=== PATIENT | female | born 1955 | race Caucasian/White ===

== ENCOUNTER 2018-07-15 17:25 | Inpatient (IN) ==
[2018-07-15] MEDS ORDERED: *HR* LORazepam 1 MG TABLET PO ONE (18:54)
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
--- NOTE | 2018-07-15 21:23 | Emergency Department Note ---
Disposition Clinical Impression: Lumbar radiculopathy, Cauda equina syndrome Disposition: Admitted As Inpatient Condition: Fair Referrals: Farzaneh Lorenzo MD [Primary Care Provider] - Forms: ED Satisfaction Letter Time of Disposition: 21:58 General Adult HPI - General Chief complaint: ED Back Pain/Injury Stated complaint: Back Pain/saddle anesthesia cant feel pee from vag Time Seen by Provider: 07/15/18 17:37 Source: patient, family Limitations: no limitations - History of Present Illness Pain Scale: 10 - Related Data Home Medications Medication Instructions Recorded Confirmed TraZODone 03/08/18 Previous Rx's Medication Instructions Recorded Sulfamethoxazole/Trimeth DS 1 each PO BID #14 tablet 03/08/18 [Bactrim DS] Lidocaine Patch [Lidoderm 5% patch] 1 each TP DAILY #10 adh..patch 07/14/18 Methocarbamol [Robaxin] 500 mg PO Q8HR #15 tablet 07/14/18 Allergies Allergy/AdvReac Type Severity Reaction Status Date / Time codeine Allergy Nausea Verified 07/14/18 18:42 Iodinated Contrast- Oral and Allergy Nausea Verified 07/14/18 18:42 IV Dye [Iodinated Contrast Media - IV Dye] Past Medical History - Past Medical History Medical history: Reports: GERD, hypertension Surgical history: Reports: appendectomy, cholecystectomy, hysterectomy Psychiatric history: Reports: no psych history NAPKIN BAND WRAPPER history: Reports: no NAPKIN BAND WRAPPER history - Social History Smoking Status: Never smoker Smokeless Tobacco Status: No Alcohol use: Reports: none Drug use: Reports: none Physical Exam - General Limitations: no limitations General appearance: alert, in no apparent distress Course Vital Signs Temperature 99.1 F 07/15/18 17:27 Pulse Rate 101 07/15/18 17:27 Respiratory Rate 16 07/15/18 17:27 Blood Pressure 130/67 07/15/18 17:27 O2 Sat by Pulse Oximetry 96 07/15/18 17:27 Temperature 99.1 F 07/15/18 17:27 Pulse Rate 98 07/15/18 19:24 Respiratory Rate 16 07/15/18 17:27 Blood Pressure 130/67 07/15/18 17:27 O2 Sat by Pulse Oximetry 96 07/15/18 19:24 Oxygen Delivery Oxygen Delivery Room Air Critical Care Time Critical Care Time: Yes Total Critical Care Time: 30 Attestation: The high probability of a clinically significant, sudden or life threatening deterioration of the [] system(s) required my full and direct attention, intervention and personal management. The aggregate critical care time was [] minutes. This time is in addition to time spent performing reported procedures but includes the following: [] Data Review and interpretation [] Patient assessment and monitoring of vital signs [] Documentation [] Medication orders and management Attestation Statement - Attestation Attestation: Care assumed from Dr. Cunha at 21:20 pending MRI L spine. Patient to ED with low back pain and radicular symptoms 21:55: MRI resulted. Tests discussed with patient. Call placed to DR. Vo - ortho/spine. MRI results discussed in detail. He recs admission to medicine service with his consultation to follow. He recs NPO and bladder scan
[2018-07-15 22:24] LABS: Basophils # 0.1 K/mcL (0.0-0.2); Basophils % 0.7 %; Eosinophils # 0.2 K/mcL (0.0-0.6); Eosinophils % 2.1 %; Hematocrit 36.6 % (35.3-44.9); Hemoglobin 11.9 g/dL (11.5-15.4); Immature Granulocytes % 0.5 % (0-4); Lymphocytes # 2.5 K/mcL (0.6-4.6); Mean Corpuscular HGB Conc 32.5 g/dL (31.6-35.5); Mean Corpuscular Hemoglobin 27.5 pg (28.0-33.3); Mean Corpuscular Volume 84.7 fL (83.0-100.0); Mean Platelet Volume 8.2 fL (9.4-12.4); Monocytes # 0.9 K/mcL (0.0-1.3); Monocytes % 10.5 %; Neutrophils # 4.5 K/mcL (1.6-8.9); Platelet Count 304 K/mcL (140-400); Red Blood Count 4.32 M/mcL (3.82-4.97); Red Cell Distribution Width 15.7 % (11.5-14.5); Segmented Neutrophils % 55.2 %
[2018-07-15 22:31] LABS: Prothrombin Time 10.9 Seconds (9.4-12.1)
[2018-07-15 22:43] LABS: Alanine Aminotransferase 21 Units/L (7-52); Albumin 3.8 g/dL (3.5-5.7); Albumin/Globulin Ratio 1.7 (1.1-2.2); Alkaline Phosphatase 56 Units/L (34-104); Aspartate Amino Transferase 21 Units/L (13-39); BUN/Creatinine Ratio 14 (6-26); Bilirubin,Total 0.3 mg/dL (0.3-1.0); Blood Urea Nitrogen 11 mg/dL (8-23); Calcium 9.2 mg/dL (8.6-10.3); Carbon Dioxide 25 mEq/L (23-29); Chloride 101 mEq/L (98-107); Globulin 2.2 g/dL (2.4-3.5); Glucose 117 mg/dL (70-105); Osmolality,Calculated 276 (280-300); Potassium 3.9 mEq/L (3.5-5.1); Sodium 133 mEq/L (136-145); eGFR For Non-African Americans > 60 (> 60)
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
[2018-07-16] MEDS ORDERED: Ondansetron 4 MG/2 ML VIAL IVP PRN (00:05)
[2018-07-16] MEDS ORDERED: OXYCODONE Oral CONC 10 MG/0.5 ML ORAL.SYG SL PRN (00:05)
[2018-07-16] MEDS ORDERED: Naloxone 0.4 MG/ML INJ IVP PRN ×3 (00:05→19:40)
[2018-07-16] MEDS: Ketorolac 15 MG/ML VIAL IVP PRN ×2 (00:44→07:55)
[2018-07-16] MEDS: methylPREDNISolone 125 MG/2 ML VIAL IVP SCH ×3 (02:26→13:42)
[2018-07-16 04:10] LABS: Basophils # 0.1 K/mcL (0.0-0.2); Basophils % 0.8 %; Eosinophils # 0.2 K/mcL (0.0-0.6); Eosinophils % 2.2 %; Hematocrit 36.6 % (35.3-44.9); Hemoglobin 11.9 g/dL (11.5-15.4); Immature Granulocytes % 0.6 % (0-4); Lymphocytes % 27.4 %; Mean Corpuscular HGB Conc 32.5 g/dL (31.6-35.5); Mean Corpuscular Hemoglobin 27.5 pg (28.0-33.3); Mean Corpuscular Volume 84.7 fL (83.0-100.0); Mean Platelet Volume 8.2 fL (9.4-12.4); Monocytes # 0.5 K/mcL (0.0-1.3); Monocytes % 7.2 %; Neutrophils # 4.4 K/mcL (1.6-8.9); Platelet Count 271 K/mcL (140-400); Red Blood Count 4.32 M/mcL (3.82-4.97); Red Cell Distribution Width 15.6 % (11.5-14.5); Segmented Neutrophils % 61.8 %
[2018-07-16 04:25] LABS: BUN/Creatinine Ratio 15 (6-26); Blood Urea Nitrogen 11 mg/dL (8-23); Carbon Dioxide 27 mEq/L (23-29); Chloride 103 mEq/L (98-107); Glucose 94 mg/dL (70-105); Osmolality,Calculated 281 (280-300); Potassium 3.8 mEq/L (3.5-5.1); Sodium 136 mEq/L (136-145); eGFR For Non-African Americans > 60 (> 60)
[2018-07-16] MEDS: Gabapentin 300 MG CAPSULE PO SCH ×2 (07:56→19:43)
[2018-07-16] MEDS ORDERED: traZODone 50 MG TABLET PO PRN (08:28)
[2018-07-16] MEDS ORDERED: BuPROPion XL (24 HR) 150 MG TABLET PO SCH (09:00)
--- NOTE | 2018-07-16 11:05 | Internal Med Progress Note ---
Hospitalist Progress Note - Encounter Date of Encounter: 07/16/18 Time of Encounter: 11:05 - Subjective Interval History: Seen and evaluated at the bedside No new complains, pain is moderately controlled - Exam Vitals: Temp Pulse Resp BP Pulse Ox 97.9 F 90 14 148/87 95 07/16/18 07:30 07/16/18 07:00 07/16/18 07:00 07/16/18 07:00 07/16/18 07:00 Exam: Gen.: Vitals noted. No acute distress. AAOx3, resting comfortably in bed. HEENT: PERRL/EOMI, oropharynx clear, Normocephalic, atraumatic, MMM Cardiac: RRR, no murmur, +S1/S2, No BLE edema Pulmonary: CTA bilaterally, no wheezes, rales or rhonchi, equal chest expansion, unlabored breathing Abdomen: soft, nontender, BS noted, no guarding, no palpable HSM Skin: warm and dry, no visible lesions. MSK: Bilateral lower extremity muscle strength 5/5 on right, 4/5 on left on proximal muscle groups. Limited due to pain. ROM intact, no joint swelling noted, gait no assessed while in bed. Non tender calf or clubbing Neuro: A&Ox3, moves all extremities,No gross focal deficits Psych: Appropriate mood and behavior, AOx3 - Assessment and Plan (1) Cauda equina syndrome Current Visit: Yes Status: Acute Assessment and Plan: Continue pain control Management by spine surgery. (2) DVT prophylaxis Current Visit: Yes Status: Acute Assessment and Plan: Subcutaneous heparin (3) GERD (gastroesophageal reflux disease) Current Visit: Yes Status: Chronic Assessment and Plan: Continue omeprazole (4) Hypertension Current Visit: Yes Status: Chronic Assessment and Plan: Uncontrolled, likely due to pain Continue home dose of Zestril Add amlodipine Hydralazine IV q6hrs when necessary SBP >160 - Time Spent with Patient Total time spent is greater than 50% in coordination of care (as documented) at patient's floor/unit and/or counseling patient: Plan of Care Discussed with: patient Internal Medicine: Result - Labs CBC & Chem 7: 07/16/18 03:38 07/16/18 03:38 Labs: Short CBC 07/15/18 07/16/18 Range/Units 22:11 03:38 WBC 8.2 7.2 (4.3-11.1) K/mcL Hgb 11.9 11.9 (11.5-15.4) g/dL Hct 36.6 36.6 (35.3-44.9) % Plt Count 304 271 (140-400) K/mcL Neutrophils # 4.5 4.4 (1.6-8.9) K/mcL BMP 07/15/18 07/16/18 22:11 03:38 Sodium 133 L 136 Potassium 3.9 3.8 Chloride 101 103 Carbon Dioxide 25 27 BUN 11 11 Creatinine 0.79 0.71 Glucose 117 H 94 Calcium 9.2 9.0 Liver Function 07/15/18 Range/Units 22:11 Total Bilirubin 0.3 (0.3-1.0) mg/dL AST 21 (13-39) Units/L ALT 21 (7-52) Units/L Alkaline Phosphatase 56 (34-104) Units/L Albumin 3.8 (3.5-5.7) g/dL - ABG Interpretation ABG results: PT/INR, D-dimer PT 10.9 Seconds (9.4-12.1) 07/15/18 22:11 - Impressions Impressions Lumbar Spine MRI 07/15/18 18:52 IMPRESSION: Multilevel degenerative thecal sac narrowing and neural foraminal stenosis. Canal stenosis is worst at L4-5 and results in impingement of the cauda equina. D/ / Salvador Jacques MD / Salvador Jacques MD Interpreting Provider: Salvador Jacques MD Consult Discharge Plan - Plan Referrals: Farzaneh Lorenzo MD [Primary Care Provider] - (3) GERD (gastroesophageal reflux disease) Qualifiers: Esophagitis presence: esophagitis presence not specified Qualified Code(s): K21.9 - Gastro-esophageal reflux disease without esophagitis (4) Hypertension Qualifiers: Hypertension type: essential hypertension Qualified Code(s): I10 - Essential (primary) hypertension
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
[2018-07-16] MEDS ORDERED: amLODIPine 5 MG TABLET PO SCH (12:45)
--- NOTE | 2018-07-16 14:33 | Anesthesia Evaluation PreOp ---
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: Denies Any Significant HX Other Medical History: GERD Anesthesia History: No Prior Anesthetic Complications, Past Anesthesia (hysterectomy) Alcohol Use: none Drug use: none Medications and Allergies Trazodone HCl 100 mg PO HS PRN 03/08/18 [History] Lidocaine Patch [Lidoderm 5% patch] 1 each TP DAILY #10 adh..patch 07/14/18 [Rx] Methocarbamol [Robaxin] 500 mg PO Q8HR #15 tablet 07/14/18 [Rx] Amitriptyline [Elavil] 50 mg PO DAILY 07/15/18 [History] Bupropion HCl [Wellbutrin Xl] 300 mg PO DAILY 07/15/18 [History] Diclofenac Sodium [Voltaren] 50 mg PO BID 07/15/18 [History] Gabapentin [Neurontin] 300 mg PO TID 07/15/18 [History] HYDROcodone/Acet 5/325 mg [[place] 5-325 mg] 1 tab PO Q4-6H PRN 07/15/18 [History] Lidocaine HCl [Aspercreme] 1 appl TP 5XD 07/15/18 [History] Lisinopril [Zestril] 5 mg PO DAILY 07/15/18 [History] Mirabegron [Myrbetriq] 25 mg PO DAILY 07/15/18 [History] Multivit with Calcium,Iron,Min [One Daily Women's] 1 tab PO DAILY 07/15/18 [History] Omeprazole [PriLOSEC] 40 mg PO DAILY 07/15/18 [History] Oxybutynin [Ditropan] 5 mg PO DAILY 07/15/18 [History] hydrOXYzine HCl [Hydroxyzine HCl] 12.5 - 25 mg PO Q4-6H PRN 07/15/18 [History] Allergy/AdvReac Type Severity Reaction Status Date / Time codeine Allergy See Verified 07/15/18 22:56 Comments Iodinated Contrast- Oral and Allergy See Verified 07/15/18 22:56 IV Dye Comments [Iodinated Contrast Media - IV Dye] - Meds/Allergy Pre-op Review Medications Reviewed: Yes Allergies Reviewed: Yes Beta Blockers on Current Med List: No Anesthesia Results - Labs 07/16/18 03:38 07/16/18 03:38 - Imaging EKG: report reviewed (07/25/2015 SINUS RHYTHM INTERPRETATION BASED ON A DEFAULT AGE OF 40 YEARS) Additional studies: 09/15/2016 Echo Impressions: LVEF 60%. Normal left ventricular size and systolic function. There is evidence of mild diastolic dysfunction of the left ventricle. Normal right ventricular size and function. Mild aortic regurgitation. No pulmonary hypertension. Anesthesia Exam Vital Signs/O2 Sat/Glucose, Most Recent Temp Pulse Resp BP Pulse Ox 97.6 F 111 17 145/84 100 07/16/18 11:30 07/16/18 14:25 07/16/18 14:25 07/16/18 14:25 07/16/18 14:25 Blood Glucose* 83 Height: 5'6''/1.68m Weight: 124 lbs/56.5 kg NPO (# of Hours): 8 Pain Scale: 8 (back) Pain Scale Used: Numeric (1 - 10) - HEENT Pupil (Motor): EOMI Mallampati: II Teeth: Edentulous Oral Opening: Greater than 3 - GALVANOMETER ASSEMBLER LOC: Oriented GALVANOMETER ASSEMBLER Motor: Normal RUE, Normal LUE, Normal RLE, Normal LLE, Normal Face GALVANOMETER ASSEMBLER Sensory: Normal: RUE, LUE, Face, Deficit: RLE, LLE - Cardiac Rhythm: Regular Murmur: None - Pulmonary Breath Sounds: bilateral Clear Respiratory Effort: Symmetrical Anesthesia Assess/Plan ASA Score: 3 Level of consciousness: Cooperative, Oriented, Tranquil Anesthetic Plan: General Monitoring Plan: Standard Monitors Recovery Plan: PACU
[2018-07-16] MEDS ORDERED: Bacitracin 50,000 UNIT, Polymyxin B Sulfate 500,000 UNIT, Sodium Chloride IRRigation 1,... IR ONE (14:40)
[2018-07-16] MEDS ORDERED: Methocarbamol 500 MG TABLET PO SCH (16:00)
[2018-07-16] MEDS ORDERED: *HR* Phenylephrine 10 MG/ML VIAL ONE (17:55)
[2018-07-16] MEDS ORDERED: *HR* Remifentanil 1 MG VIAL IVP ONE (17:55)
[2018-07-16] MEDS ORDERED: *HR* Succinylcholine 200 MG/10 ML VIAL IVP ONE (17:55)
[2018-07-16] MEDS ORDERED: *HR* Midazolam HCl 2 MG/2 ML VIAL ONE (17:55)
[2018-07-16] MEDS ORDERED: Lidocaine -MPF 2% 2 ML VIAL ONE (17:55)
[2018-07-16] MEDS ORDERED: *HR* Rocuronium Bromide 50 MG/5 ML VIAL ONE (17:55)
[2018-07-16] MEDS ORDERED: *HR* PHENYLEPHRINE 1,000 MCG/10 ML SYRINGE IVP ONE (17:55)
[2018-07-16] MEDS ORDERED: *HR* Propofol 200 MG/20 ML VIAL IVP ONE (17:55)
[2018-07-16] MEDS ORDERED: *HR* FentaNYL (PF) 100 MCG/2 ML VIAL ONE (17:55)
[2018-07-16] MEDS ORDERED: Ondansetron 4 MG/2 ML VIAL ONE (18:08)
[2018-07-16] MEDS ORDERED: Dexamethasone 4 MG/ML VIAL ONE (18:09)
--- NOTE | 2018-07-16 18:15 | Orthopedic Operative Note ---
Date of procedure: 07/16/18 Pre-op diagnosis: Cauda equina syndrome, spondylolisthesis, lumbar stenosis Post-op diagnosis: same Operation/Findings: Posterior lumbar interbody fusion L4-L5, laminectomy L3-4: The patient successfully underwent general endotracheal anesthesia. The patient was given antibiotics prior to the start of the procedure. Compression boots and stockings were used for deep vein thrombosis prophylaxis. A Martin catheter was placed. Leads for neuro monitoring were placed on the upper and lower extremities. This included the cranium. The neuro monitoring personnel confirmed there were satisfactory readings prior to the start of the procedure. The patient was turned prone on the Jamie table. The back was prepped and draped in the usual sterile fashion. An incision was was marked and centered over the involved L3-L5 levels in the mid line. The incision was deepened through the lumbar fascia. Bovie cautery and Gracia elevators were used to reflect the paraspinal musculature at the lateral extent of the L3-L5 transverse processes of the involved levels. Maddy clamps were placed over the L4 and L5 spinous processes. An intraoperative lateral fluorograph was obtained. A conversation was held between the surgeon and radiologist and both confirmed we had the correct operative levels. We then placed pedicle screws in standard fashion with the aid of fluoroscopy and anatomic landmarks. Briefly a starter awl was used. A gearshift was subsequently used to enter the helicopter pilot hole via a transpedicular route into the vertebral body. The helicopter pilot hole was tapped with an undersized instrument, and subsequently four 6.5 x 40 mm pedicle screws were placed bilaterally at the indicated L4 and L5 levels. The screws were tested with the aid of the neurologic monitoring staff via pedicle screw stimulation. All reading suggested there was no significant cortical wall breech. The screws were also evaluated fluoro- graphically and appeared to be in satisfactory position. We then turned our attention to the decompression portion of the pr ocedure. We removed the supraspinous and interspinous ligaments and subsequently the insertion of the ligamentum flavum on the undersurface of the proximal L4 lamina was dislodged with a curette. We then removed the ligamentum flavum as well as undercut the L4-L5 facets at this level to decompress the lateral recesses. We also performed a L4 laminectomy. The thecal sac was noted to be severely compressed and appeared dusky due to the severe compression. There was clearly significant stenosis as well proximally at the L3-4 level so we proceeded with the decompression at L3-4. This involved removing the ligamentum flavum and supraspinous ligaments, undercutting the L3-4 facets, doing partial medial facetectomies. And doing a partial L3 laminectomy. After the decompression,which was over and above that which was required to place the interbody graft, the foramen and traversing roots at the L3-4 and L4-5 levels were found to be free and patent. We then protected the neural elements including the thecal sac and traversing nerve root on the right at L4-L5 with a dural retractor. We made an annulotomy into the L4-L5 disc space and then removed entire disc material using Pituitary instruments. We trialed various size grafts after the endplates were prepared for graft insertion. A 10 x 26 enter body graft fit well within the L4-L5 disc space. We obtained some bone from the right posterior superior iliac spine through us a separate incision and combined with this with the bone which we had saved from the L3 and L4 laminectomy portion of the procedure. This autograft bone was first placed in the anterior portion of the L4-L5 disc space and additional bone was placed within the interbody graft spacer. We then placed the interbody graft spacer obliquely across the L4-L5 disc space towards the midline while protecting the neural elements with a root retractor. When the graft was found to be in satisfactory position the electronic system engineer was removed. We then copiously irrigated the wound. We then decorticated the L4 and L5 transverse processes as well as the facet joints of the involved L4-L5 levels to aid in the posterolateral fusion. We placed autograft bone in the lateral gutters over these regions. We then placed rods within the screw heads of the involved L4 and L5 levels and first locked the distal screws and then subsequently locked the proximal screws so as to improve and reduce the spondylolisthesis previously seen. We then closed the wound in layers with 1 Vicryl for the fascia, 2-0 Vicryl. Subcutaneous tissue, and Dermabond was used for skin closure. Sterile dressings were placed over the wound. The patient was turned supine on a hospital bed and extubated. All sponge instruments and needle counts were correct at the end of the procedu re. The patient tolerated the procedure well without complications. Anesthesia: GETA Surgeon: Rajinder Vo Jr Was there an child care center assistant director present: No Estimated blood loss (cc): 100 Specimen: None Condition: stable Disposition: PACU
[2018-07-16] MEDS: *HR* HYDROmorphone (PF) 1 MG/ML SYRINGE IVP PRN ×5 (18:39→19:06)
[2018-07-16] MEDS ORDERED: Acetaminophen IV 1,000 MG/100 ML INFUS..BTL ONE (19:06)
[2018-07-16] MEDS ORDERED: *HR* HYDROmorphone (PF) 1 MG/ML SYRINGE ONE (19:06)
[2018-07-16] MEDS ORDERED: *HR* HYDROmorphone (PF) 1 MG/ML SYRINGE IVP PRN (19:11)
[2018-07-16] MEDS ORDERED: Acetaminophen IV 1,000 MG/100 ML INFUS..BTL IVPB ONE (19:11)
--- NOTE | 2018-07-16 19:23 | Anesthesia Evaluation Post Op ---
Date of Encounter: 07/16/18 Time of Encounter: 19:30 - Vital Signs Vital Signs: Vital Signs/O2 Sat/Glucose, Most Current Temp Pulse Resp BP Pulse Ox 07/16/18 19:15 101 18 143/75 100 07/16/18 19:05 98.6 F 107 18 153/89 100 07/16/18 18:55 112 20 143/98 100 07/16/18 18:45 97.9 F 111 22 149/78 100 07/16/18 18:35 122 18 109/81 100 07/16/18 18:25 97.6 F 112 12 131/68 100 - Lungs Lungs: Clear Ascult./Percussion - Airway Airway: Non-obstructed - Cardiovascular Regular Rate - Mental Status Mental Status: Alert & Oriented, Answers Appropriately - Pain Pain Scale: 4 - Nausea Vomiting Nausea Vomiting: Not Present - Hydration Hydration: Ice chips - Discharge PostOp Status: Transfer Patient to floor
[2018-07-16] MEDS ORDERED: Acetaminophen 325 MG TABLET PO PRN (19:40)
[2018-07-16] MEDS ORDERED: Ringers Solution, Lactated 1,000 ML ONE (19:54)
[2018-07-16] MEDS: Ringers Solution, Lactated 1,000 ML IVC SCH (23:20)
[2018-07-16] MEDS: *HR* OxyCODONE Immed Rel 5 MG TABLET PO PRN (23:21)
[2018-07-17] MEDS: *HR* HYDROcodone/Acet 5/325 mg TABLET PO PRN ×3 (02:45→21:31)
[2018-07-17 03:18] LABS: Basophils % 0.1 %; Immature Granulocytes % 0.5 % (0-4); Lymphocytes # 0.9 K/mcL (0.6-4.6); Lymphocytes % 6.1 %; Mean Corpuscular HGB Conc 33.1 g/dL (31.6-35.5); Mean Corpuscular Hemoglobin 27.7 pg (28.0-33.3); Mean Corpuscular Volume 83.8 fL (83.0-100.0); Mean Platelet Volume 8.4 fL (9.4-12.4); Monocytes # 1.2 K/mcL (0.0-1.3); Monocytes % 7.8 %; Neutrophils # 13.1 K/mcL (1.6-8.9); Platelet Count 270 K/mcL (140-400); Red Blood Count 3.46 M/mcL (3.82-4.97); Red Cell Distribution Width 15.6 % (11.5-14.5); Segmented Neutrophils % 85.5 %
[2018-07-17 03:23] LABS: Hemoglobin 9.6 g/dL (11.5-15.4)
[2018-07-17 03:39] LABS: BUN/Creatinine Ratio 25 (6-26); Blood Urea Nitrogen 13 mg/dL (8-23); Calcium 8.4 mg/dL (8.6-10.3); Carbon Dioxide 26 mEq/L (23-29); Chloride 102 mEq/L (98-107); Glucose 143 mg/dL (70-105); Osmolality,Calculated 279 (280-300); Potassium 3.9 mEq/L (3.5-5.1); Sodium 133 mEq/L (136-145); eGFR For Non-African Americans > 60 (> 60)
[2018-07-17] MEDS: Ringers Solution, Lactated 1,000 ML IVC SCH (06:27)
[2018-07-17] MEDS: *HR* OxyCODONE Immed Rel 5 MG TABLET PO PRN ×2 (07:56→18:21)
[2018-07-17] MEDS: Multivit/Ca/Min/Fe/FA 1 TAB TABLET PO SCH (07:56)
[2018-07-17] MEDS: (Mirabegron [Myrbetriq] 25 MG PO SCH (07:57)
--- NOTE | 2018-07-17 13:07 | Spine Progress Note ---
Date of Encounter: 07/17/18 Time of Encounter: 13:06 - Assessment and Plan (1) Spondylolisthesis at L4-L5 level Current Visit: Yes Status: Chronic (2) Lumbar stenosis Current Visit: Yes Status: Chronic Qualifiers: Neurogenic claudication status: without neurogenic claudication Qualified Code(s): M48.061 - Spinal stenosis, lumbar region without neurogenic claudication Subjective Principal diagnosis: Cauda equina syndrome, lumbar stenosis, spondylolisthesis Interval history: The patient is without complaints. Still with some numbness in bilateral lower extremities. Able to void at her baseline. No bowel movement yet. Afebrile vital signs are stable. Dressing is clean dry and intact. Neurovascularly intact with regard to bilateral lower extremities. Fires all upper and lower extremity motor groups. Assessment :stable. Plan mobilize ,continue analge sics, discharge planning. Objective Vital signs: Vital Signs Temp Pulse Resp BP Pulse Ox 07/17/18 11:07 98.0 F 86 14 132/83 94 07/17/18 06:23 99.5 F 90 16 117/57 07/17/18 02:31 98.9 F 104 15 124/67 94 07/16/18 22:47 98.7 F 109 16 150/68 07/16/18 21:45 99 16 98/58 98 07/16/18 20:45 97.8 F 102 12 109/67 98 07/16/18 20:15 98.6 F 112 16 146/72 100 07/16/18 19:45 98.2 F 116 20 137/70 99 07/16/18 19:41 98.2 F 116 16 137/70 99 07/16/18 19:25 104 18 130/66 100 07/16/18 19:15 101 18 143/75 100 07/16/18 19:05 98.6 F 107 18 153/89 100 07/16/18 18:55 112 20 143/98 100 07/16/18 18:45 97.9 F 111 22 149/78 100 07/16/18 18:35 122 18 109/81 100 07/16/18 18:25 97.6 F 112 12 131/68 100 07/16/18 14:25 111 17 145/84 100 07/16/18 14:20 114 16 142/108 99 07/16/18 14:15 112 14 138/87 100 07/16/18 14:10 118 16 165/126 100 07/16/18 14:05 118 16 151/86 100 Intake and Output 07/16/18 07/17/18 07/17/18 23:59 07:59 15:59 Intake Total 1000 / 1000 440 / 440 Output Total 500 / 500 900 / 900 600 / 600 Balance -500 / -500 100 / 100 -160 / -160 Intake: IV Fluids 1000 / 1000 Lactated Ringers 1,000 ML @ 100 1000 / 1000 mls/hr IVC .Q10H JOSE Rx#: [id number] Ancef 2,000 MG In 0.9 % Sodium 0 / 0 Chloride 100 ML @ 200 mls/hr IVPB Q8HR JOSE Rx#:[id number] Oral 440 / 440 Output: Urine 600 / 600 Estimated Blood Loss 100 / 100 Urine Amount (Catheter) 400 / 400 Catheter 900 / 900 Other: Meal Breakfast Percent of Meal Consumed 40% # Voids 1 - Labs CBC & BMP: 07/17/18 02:28 07/17/18 02:28 Labs: Abnormal lab results WBC 15.3 K/mcL (4.3-11.1) H D 07/17/18 02:28 RBC 3.46 M/mcL (3.82-4.97) L 07/17/18 02:28 Hgb 9.6 g/dL (11.5-15.4) L D 07/17/18 02:28 Hct 29.0 % (35.3-44.9) L 07/17/18 02:28 MCH 27.7 pg (28.0-33.3) L 07/17/18 02:28 RDW 15.6 % (11.5-14.5) H 07/17/18 02:28 MPV 8.4 fL (9.4-12.4) L 07/17/18 02:28 Neutrophils # 13.1 K/mcL (1.6-8.9) H 07/17/18 02:28 Sodium 133 mEq/L (136-145) L 07/17/18 02:28 Creatinine 0.53 mg/dL (0.60-1.20) L 07/17/18 02:28 Glucose 143 mg/dL (70-105) H 07/17/18 02:28 Calculated Osmolality 279 (280-300) L 07/17/18 02:28 Calcium 8.4 mg/dL (8.6-10.3) L 07/17/18 02:28 Serum Total Protein 6.0 g/dL (6.4-8.9) L 07/15/18 22:11 Globulin 2.2 g/dL (2.4-3.5) L 07/15/18 22:11 Consult Discharge Plan - Plan Referrals: Farzaneh Lorenzo MD [Primary Care Provider] -
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
[2018-07-17] MEDS ORDERED: hydrOXYzine pamoate 25 MG CAPSULE PO ONE (21:08)
[2018-07-18] MEDS: *HR* OxyCODONE Immed Rel 5 MG TABLET PO PRN ×4 (00:58→23:53)
[2018-07-18] MEDS: Ringers Solution, Lactated 1,000 ML IVC SCH ×2 (07:03→12:45)
[2018-07-18] MEDS: Multivit/Ca/Min/Fe/FA 1 TAB TABLET PO SCH (09:10)
[2018-07-18] MEDS: (Mirabegron [Myrbetriq] 25 MG PO SCH (09:11)
[2018-07-18] MEDS: Ondansetron 4 MG/2 ML VIAL IVP PRN (09:43)
--- NOTE | 2018-07-18 12:07 | Spine Progress Note ---
Date of Encounter: 07/18/18 Time of Encounter: 12:06 - Assessment and Plan (1) Spondylolisthesis at L4-L5 level Current Visit: Yes Status: Chronic (2) Lumbar stenosis Current Visit: Yes Status: Chronic Qualifiers: Neurogenic claudication status: without neurogenic claudication Qualified Code(s): M48.061 - Spinal stenosis, lumbar region without neurogenic claudication Subjective Principal diagnosis: Cauda equina syndrome, lumbar stenosis, spondylolisthesis Interval history: The patient is without complaints. Still with some numbness in bilateral lower extremities but improving. Now voiding as well as having bowel movements. . Afebrile vital signs are stable. Incision is clean dry and intact. Neurovascularly intact with regard to bilateral lower extremities. Fires all upper and lower extremity motor groups. Assessment :stable. Plan mobilize ,continue analgesics, discharge planning. Objective Vital signs: Vital Signs Temp Pulse Resp BP Pulse Ox 07/18/18 10:31 98.0 F 72 15 138/79 99 07/18/18 09:10 91 07/18/18 06:24 97.6 F 64 14 120/66 91 07/18/18 02:54 97.7 F 66 14 107/60 96 07/17/18 23:04 97.9 F 85 14 127/75 99 07/17/18 19:08 98.8 F 90 18 145/77 98 07/17/18 15:54 98.1 F 84 14 169/69 97 Intake and Output 07/17/18 07/18/18 07/18/18 23:59 07:59 15:59 Intake Total 350 / 350 1100 / 1100 Output Total 0 / 0 Balance 350 / 350 1100 / 1100 Intake: IV Fluids 1050 / 1050 Lactated Ringers 1,000 ML @ 100 950 / 950 mls/hr IVC .Q10H JOSE Rx#: [id number] Oral 350 / 350 50 / 50 Output: Urine 0 / 0 Other: # Voids 1 1 # Bowel Movements 1 Weight 62.8 kg Patient Weight 07/18/18 23:59 Weight 62.8 kg - Labs CBC & BMP: 07/17/18 02:28 07/17/18 02:28 Labs: Abnormal lab results WBC 15.3 K/mcL (4.3-11.1) H D 07/17/18 02:28 RBC 3.46 M/mcL (3.82-4.97) L 07/17/18 02:28 Hgb 9.6 g/dL (11.5-15.4) L D 07/17/18 02:28 Hct 29.0 % (35.3-44.9) L 07/17/18 02:28 MCH 27.7 pg (28.0-33.3) L 07/17/18 02:28 RDW 15.6 % (11.5-14.5) H 07/17/18 02:28 MPV 8.4 fL (9.4-12.4) L 07/17/18 02:28 Neutrophils # 13.1 K/mcL (1.6-8.9) H 07/17/18 02:28 Sodium 133 mEq/L (136-145) L 07/17/18 02:28 Creatinine 0.53 mg/dL (0.60-1.20) L 07/17/18 02:28 Glucose 143 mg/dL (70-105) H 07/17/18 02:28 Calculated Osmolality 279 (280-300) L 07/17/18 02:28 Calcium 8.4 mg/dL (8.6-10.3) L 07/17/18 02:28 Serum Total Protein 6.0 g/dL (6.4-8.9) L 07/15/18 22:11 Globulin 2.2 g/dL (2.4-3.5) L 07/15/18 22:11 Consult Discharge Plan - Plan Referrals: Farzaneh Lorenzo MD [Primary Care Provider] -
[2018-07-18] MEDS: *HR* HYDROcodone/Acet 5/325 mg TABLET PO PRN (15:22)
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
[2018-07-19] MEDS: *HR* OxyCODONE Immed Rel 5 MG TABLET PO PRN ×2 (07:23→20:10)
[2018-07-19] MEDS: Multivit/Ca/Min/Fe/FA 1 TAB TABLET PO SCH (07:24)
[2018-07-19] MEDS: (Mirabegron [Myrbetriq] 25 MG PO SCH (07:48)
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
[2018-07-19 12:28] LABS: Basophils # 0.1 K/mcL (0.0-0.2); Basophils % 0.7 %; Eosinophils # 0.3 K/mcL (0.0-0.6); Eosinophils % 3.7 %; Hemoglobin 10.9 g/dL (11.5-15.4); Immature Granulocytes % 0.3 % (0-4); Lymphocytes # 1.7 K/mcL (0.6-4.6); Lymphocytes % 22.7 %; Mean Corpuscular Hemoglobin 27.4 pg (28.0-33.3); Mean Corpuscular Volume 82.9 fL (83.0-100.0); Mean Platelet Volume 8.7 fL (9.4-12.4); Monocytes # 0.7 K/mcL (0.0-1.3); Monocytes % 8.6 %; Neutrophils # 4.9 K/mcL (1.6-8.9); Platelet Count 286 K/mcL (140-400); Red Blood Count 3.98 M/mcL (3.82-4.97); Red Cell Distribution Width 15.9 % (11.5-14.5)
[2018-07-19 12:46] LABS: BUN/Creatinine Ratio 18 (6-26); Blood Urea Nitrogen 10 mg/dL (8-23); Calcium 8.8 mg/dL (8.6-10.3); Carbon Dioxide 29 mEq/L (23-29); Chloride 99 mEq/L (98-107); Glucose 103 mg/dL (70-105); Osmolality,Calculated 285 (280-300); Potassium 3.1 mEq/L (3.5-5.1); Sodium 138 mEq/L (136-145); eGFR For Non-African Americans > 60 (> 60)
[2018-07-19 13:06] LABS: Thyroid Stimulating Hormone 0.342 mcIU/mL (0.340-5.600)
--- NOTE | 2018-07-19 16:14 | Orthopedics Progress Note ---
Date of Encounter: 07/19/18 Time of Encounter: 14:00 - Assessment and Plan (1) Cauda equina syndrome Current Visit: Yes Status: Acute (2) Lumbar radiculopathy Current Visit: Yes Status: Acute (3) Lumbar stenosis Current Visit: Yes Status: Chronic Qualifiers: Neurogenic claudication status: without neurogenic claudication Qualified Code(s): M48.061 - Spinal stenosis, lumbar region without neurogenic claudication (4) Spondylolisthesis at L4-L5 level Current Visit: Yes Status: Chronic (5) Urinary retention Current Visit: No Status: Acute Subjective Principal diagnosis: Cauda equina syndrome, lumbar stenosis, spondylolisthesis Interval history: The patient is without complaints. Still with some numbness in bilateral lower extremities but improving. Continues with voiding difficultly - Martin in place. Had BM POD#1. Afebrile vital signs are stable. Incision is clean dry and intact. Neurovascularly intact with regard to bilateral lower extremities. Fires all upper and lower extremity motor groups. Assessment urinary retention Plan mobilize ,continue analgesics, discharge planning. D/c Martin on 07/20 and perform voiding trial If failure to void within 8-12 hours will need to replace Martin and will plan to consult Urology Objective Vital signs: Vital Signs Temp Pulse Pulse Pulse Pulse Resp BP 07/19/18 11:23 88 96 110 07/19/18 10:12 98.2 F 109 16 127/75 07/19/18 06:47 98.6 F 68 16 133/70 07/18/18 23:54 97.9 F 70 18 150/90 07/18/18 20:40 97.6 F 73 17 159/81 BP BP BP Pulse Ox 07/19/18 11:23 168/78 155/73 134/85 07/19/18 10:12 98 07/19/18 06:47 94 07/18/18 23:54 98 07/18/18 20:40 98 Intake and Output 07/19/18 07/19/18 07/19/18 07:59 15:59 23:59 Intake Total 300 / 300 240 / 240 Output Total 550 / 550 400 / 400 Balance -250 / -250 -160 / -160 Intake: Oral 300 / 300 240 / 240 Output: Catheter 550 / 550 400 / 400 Other: Meal Lunch Percent of Meal Consumed 25% Weight 62.8 kg Patient Weight 07/19/18 23:59 Weight 62.8 kg - Labs CBC & BMP: 07/19/18 11:53 07/19/18 11:53 Labs: Abnormal lab results Hgb 10.9 g/dL (11.5-15.4) L 07/19/18 11:53 Hct 33.0 % (35.3-44.9) L 07/19/18 11:53 MCV 82.9 fL (83.0-100.0) L 07/19/18 11:53 MCH 27.4 pg (28.0-33.3) L 07/19/18 11:53 RDW 15.9 % (11.5-14.5) H 07/19/18 11:53 MPV 8.7 fL (9.4-12.4) L 07/19/18 11:53 Potassium 3.1 mEq/L (3.5-5.1) L 07/19/18 11:53 Creatinine 0.56 mg/dL (0.60-1.20) L 07/19/18 11:53 Serum Total Protein 6.0 g/dL (6.4-8.9) L 07/15/18 22:11 Globulin 2.2 g/dL (2.4-3.5) L 07/15/18 22:11 - VTE Documentation of Mechanical Device: Graduated compression elastic hosiery Consult Discharge Plan - Plan Referrals: Farzaneh Lorenzo MD [Primary Care Provider] -
[2018-07-20] MEDS: *HR* OxyCODONE Immed Rel 5 MG TABLET PO PRN ×5 (00:26→19:20)
[2018-07-20] MEDS: (Mirabegron [Myrbetriq] 25 MG PO SCH (09:22)
[2018-07-20] MEDS: Multivit/Ca/Min/Fe/FA 1 TAB TABLET PO SCH (09:22)
[2018-07-20 09:43] LABS: BUN/Creatinine Ratio 17 (6-26); Blood Urea Nitrogen 10 mg/dL (8-23); Calcium 8.8 mg/dL (8.6-10.3); Carbon Dioxide 29 mEq/L (23-29); Chloride 100 mEq/L (98-107); Glucose 129 mg/dL (70-105); Osmolality,Calculated 285 (280-300); Potassium 3.6 mEq/L (3.5-5.1); Sodium 137 mEq/L (136-145); eGFR For Non-African Americans > 60 (> 60)
--- NOTE | 2018-07-20 14:35 | Orthopedics Progress Note ---
Date of Encounter: 07/20/18 Time of Encounter: 14:33 Subjective Principal diagnosis: Cauda equina syndrome, lumbar stenosis, spondylolisthesis Interval history: Patient is doing much better today. She has been ambulating. This reports very mild numbness and tingling in the extremities to improve significantly. She only has the sciatica type pain when she is straining in the bathroom. Her Martin was discontinued this morning and she has just voided 200 mL. Patient reports positive flatus Physical exam: Back dressings clean dry intact Patient has good motion of her bilateral lower extremities, with good strength and grossly sensation intact. Assessment: Postoperative day #4 status post plus for cauda equina syndrome, significant improvement Plan: Continue PT We will continue observation for urinary voiding Objective Vital signs: Vital Signs Temp Pulse Resp BP Pulse Ox 07/20/18 11:09 99.1 F 79 16 154/76 96 07/20/18 06:27 98.6 F 76 16 138/70 98 07/20/18 03:48 98.0 F 72 15 122/78 94 07/19/18 23:28 97.9 F 84 15 155/76 94 07/19/18 19:38 97.9 F 65 16 166/79 97 07/19/18 16:47 99.0 F 106 16 155/92 97 Intake and Output 07/19/18 07/20/18 07/20/18 23:59 07:59 15:59 Intake Total / 220 / 220 Output Total 900 / 900 300 / 300 200 / 200 Balance -899 / -899 -300 / -300 20 / 20 Intake: IV Fluids / 1 Potassium Chloride 10 mEq/100mL / 1 10 meq In 100 ml @ 100 mls/hr IVPB Q1H [facility] Rx#:[id number] Oral 220 / 220 Output: Urine 200 / 200 Catheter 900 / 900 300 / 300 Other: Meal Lunch Percent of Meal Consumed 80% Weight 62.3 kg Patient Weight 07/20/18 23:59 Weight 62.3 kg - Labs CBC & BMP: 07/19/18 11:53 07/20/18 09:12 Labs: Abnormal lab results Hgb 10.9 g/dL (11.5-15.4) L 07/19/18 11:53 Hct 33.0 % (35.3-44.9) L 07/19/18 11:53 MCV 82.9 fL (83.0-100.0) L 07/19/18 11:53 MCH 27.4 pg (28.0-33.3) L 07/19/18 11:53 RDW 15.9 % (11.5-14.5) H 07/19/18 11:53 MPV 8.7 fL (9.4-12.4) L 07/19/18 11:53 Glucose 129 mg/dL (70-105) H 07/20/18 09:12 Serum Total Protein 6.0 g/dL (6.4-8.9) L 07/15/18 22:11 Globulin 2.2 g/dL (2.4-3.5) L 07/15/18 22:11 - VTE Documentation of Mechanical Device: Graduated compression elastic hosiery Consult Discharge Plan - Plan Referrals: Farzaneh Lorenzo MD [Primary Care Provider] -
[2018-07-20] MEDS: Ondansetron 4 MG/2 ML VIAL IVP PRN ×2 (14:49→20:42)
--- NOTE | 2018-07-20 19:40 | Internal Med Progress Note ---
Hospitalist Progress Note - Encounter Date of Encounter: 07/20/18 Time of Encounter: 09:00 - Subjective Interval History: Patient feels slightly numbness on toes, sciatica pain when patient bent forward. Void well with 1 ml residual per bladder scan. - Exam Vitals: Temp Pulse Resp BP Pulse Ox 98.0 F 98 16 160/89 96 07/20/18 15:36 07/20/18 15:36 07/20/18 15:36 07/20/18 15:36 07/20/18 15:36 Exam: Exam: Gen.: Vitals noted. No acute distress. AAOx3, resting comfortably in bed. HEENT: PERRL/EOMI, oropharynx clear, Normocephalic, atraumatic, MMM Cardiac: RRR, no murmur, +S1/S2, No BLE edema Pulmonary: CTA bilaterally, no wheezes, rales or rhonchi, equal chest expansion, unlabored breathing Abdomen: soft, nontender, BS noted, no guarding, no palpable HSM Skin: warm and dry, no visible lesions. MSK: Bilateral lower extremity muscle strength 5/5 on right, 4/5 on left on proximal muscle groups. Limited due to pain. ROM intact, no joint swelling noted, gait no assessed while in bed. Non tender calf or clubbing Neuro: A&Ox3, moves all extremities, some difficulty determining sharp vs dull on LLE, sensation intact. Positive babinski on left. Reflexes 2/4 bilaterally. Psych: Appropriate mood and behavior, AOx3 - Assessment and Plan (1) Hypertension Current Visit: Yes Status: Chronic Assessment and Plan: Uncontrolled, likely due to pain Continue lisinopril 5 mg PO QD Hydralazine IV q6hrs when necessary SBP >160 (2) Cauda equina syndrome Current Visit: Yes Status: Acute Assessment and Plan: Continue pain control. S/P decompression sx. Management by spine surgery. Continue PT/OT. PT/OT recommend home with home health (3) GERD (gastroesophageal reflux disease) Current Visit: Yes Status: Chronic Assessment and Plan: Continue omeprazole (4) Spondylolisthesis at L4-L5 level Current Visit: Yes Status: Chronic Assessment and Plan: s/p posterior lumbar interbody fusion L4-L5, (5) Lumbar stenosis Current Visit: Yes Status: Chronic Assessment and Plan: s/p laminectomy L3-4. SPine surgery on board DVT Prophylaxis: Heparin SC - Time Spent with Patient Total time spent is greater than 50% in coordination of care (as documented) at patient's floor/unit and/or counseling patient: 30 min 25 - 35 minutes Plan of Care Discussed with: patient Internal Medicine: Result - Labs CBC & Chem 7: 07/19/18 11:53 07/20/18 09:12 Labs: BMP 07/20/18 09:12 Sodium 137 Potassium 3.6 Chloride 100 Carbon Dioxide 29 BUN 10 Creatinine 0.60 Glucose 129 H Calcium 8.8 - ABG Interpretation ABG results: PT/INR, D-dimer PT 10.9 Seconds (9.4-12.1) 07/15/18 22:11 - VTE Documentation of Mechanical Device: Graduated compression elastic hosiery Consult Discharge Plan - Plan Referrals: Farzaneh Lorenzo MD [Primary Care Provider] - (1) Hypertension Qualifiers: Hypertension type: essential hypertension Qualified Code(s): I10 - Essential (primary) hypertension (3) GERD (gastroesophageal reflux disease) Qualifiers: Esophagitis presence: esophagitis presence not specified Qualified Code(s): K21.9 - Gastro-esophageal reflux disease without esophagitis (5) Lumbar stenosis Qualifiers: Neurogenic claudication status: without neurogenic claudication Qualified Code(s): M48.061 - Spinal stenosis, lumbar region without neurogenic claudication
[2018-07-20] MEDS: diazePAM 5 MG TABLET PO PRN (20:37)
[2018-07-21] MEDS: *HR* OxyCODONE Immed Rel 5 MG TABLET PO PRN ×3 (01:43→12:21)
[2018-07-21] MEDS: diazePAM 5 MG TABLET PO PRN (04:46)
[2018-07-21] MEDS: Multivit/Ca/Min/Fe/FA 1 TAB TABLET PO SCH (08:00)
[2018-07-21] MEDS: (Mirabegron [Myrbetriq] 25 MG PO SCH (08:00)
[2018-07-21] MEDS ORDERED: amLODIPine 5 MG TABLET PO SCH (09:00)
[2018-07-21 11:08] VITALS: BP 123/67
--- NOTE | 2018-07-21 11:59 | Orthopedics Progress Note ---
Date of Encounter: 07/22/18 Time of Encounter: 11:57 - Assessment and Plan (1) Cauda equina syndrome Status: Acute (2) Lumbar radiculopathy Status: Acute (3) Lumbar stenosis Status: Chronic Qualifiers: Neurogenic claudication status: unspecified Qualified Code(s): M48.061 - Spinal stenosis, lumbar region without neurogenic claudication (4) Spondylolisthesis at L4-L5 level Status: Chronic (5) Urinary retention Status: Acute Subjective Principal diagnosis: Cauda equina syndrome, lumbar stenosis, spondylolisthesis Interval history: The patient is without complaints. Still with some numbness in bilateral lower extremities but improving. Continues with voiding difficultly - patient passed voiding trial and has been voiding spontaneously though patient states that she feels the need to bear down to urinate. Had BM POD#1. Afebrile vital signs are stable. Incision is clean dry and intact. Neurovascularly intact with regard to bilateral lower extremities. Fires all upper and lower extremity motor groups. Assessment urinary retention - improving Plan mobilize ,continue analgesics, discharge planning. Plan to discharge today if cleared by hospitalist. Follow up in office in 2 weeks as scheduled. Objective Vital signs: Vital Signs Temp Pulse Resp BP Pulse Ox 07/21/18 11:07 98.4 F 87 16 123/67 93 07/21/18 06:50 98.3 F 90 18 111/73 95 07/21/18 04:30 98.3 F 113 14 132/81 97 07/21/18 02:34 135/78 07/21/18 00:56 98.1 F 76 14 163/77 93 07/20/18 20:48 162/78 07/20/18 20:24 98.1 F 106 16 170/94 100 07/20/18 15:36 98.0 F 98 16 160/89 96 Intake and Output 07/20/18 07/21/18 07/21/18 23:59 07:59 15:59 Intake Total 60 / 60 300 / 300 100 / 100 Output Total 400 / 400 400 / 400 Balance -340 / -340 -100 / -100 100 / 100 Intake: Oral 60 / 60 300 / 300 100 / 100 Output: Urine 400 / 400 400 / 400 Other: Meal Dinner Breakfast Percent of Meal Consumed 10% 100% # Voids 1 Weight 62.18 kg Patient Weight 07/21/18 23:59 Weight 62.18 kg - Labs CBC & BMP: 07/19/18 11:53 07/20/18 09:12 Labs: Abnormal lab results Hgb 10.9 g/dL (11.5-15.4) L 07/19/18 11:53 Hct 33.0 % (35.3-44.9) L 07/19/18 11:53 MCV 82.9 fL (83.0-100.0) L 07/19/18 11:53 MCH 27.4 pg (28.0-33.3) L 07/19/18 11:53 RDW 15.9 % (11.5-14.5) H 07/19/18 11:53 MPV 8.7 fL (9.4-12.4) L 07/19/18 11:53 Glucose 129 mg/dL (70-105) H 07/20/18 09:12 Serum Total Protein 6.0 g/dL (6.4-8.9) L 07/15/18 22:11 Globulin 2.2 g/dL (2.4-3.5) L 07/15/18 22:11 - VTE Documentation of Mechanical Device: Graduated compression elastic hosiery Consult Discharge Plan - Plan Referrals: Rajinder Vo Jr, MD [Partnered Physician] - Farzaneh Lorenzo MD [Primary Care Provider] - Prescriptions: OxyCODONE Immed Rel [Roxicodone 5 MG] 5 mg PO Q6HR PRN 7 Days #28 tablet PRN Reason: Severe Pain Docusate Sodium [Colace] 100 mg PO BID 5 Days #10 capsule
--- NOTE | 2018-07-21 12:26 | Discharge Summary ---
- NOTES TO OUTPATIENT PROVIDER Notes to Outpatient Provider: 1. Follow up with Ortho Dr Nicole as outpatient. Orders not resulted at time of discharge: Pending orders 07/16/18 16:00 XR lumbar spine 1V [XR] Routine 07/19/18 08:16 XR lumbar spine 2-3V [XR] Routine Date of Encounter: 07/21/18 Time of Encounter: 09:00 - Discharge Diagnosis (1) Hypertension Priority: Secondary Status: Chronic Qualifiers: Hypertension type: essential hypertension Qualified Code(s): I10 - Essential (primary) hypertension (2) Cauda equina syndrome Priority: Primary Status: Acute (3) GERD (gastroesophageal reflux disease) Priority: Secondary Status: Chronic Qualifiers: Esophagitis presence: esophagitis presence not specified Qualified Code(s): K21.9 - Gastro-esophageal reflux disease without esophagitis (4) Spondylolisthesis at L4-L5 level Priority: Primary Status: Chronic (5) Lumbar stenosis Priority: Primary Status: Chronic Qualifiers: Neurogenic claudication status: without neurogenic claudication Qualified Code(s): M48.061 - Spinal stenosis, lumbar region without neurogenic claudication Hospital course: Ms. Mojica is a 63 year old female present to ER for bilateral lower extremity numbness, imaging study shows Cauda equina syndrome, spinal surgery consult was called and emergent decompression surgery has been done. Pt has initially difficult urination after surgery. Symptoms improved later. Pt has urinated twice this morning with bladder scan shows residual volume 47 and 48 ml resp ectively. Will d/c pt home today with home health and home PT/OT. F/U with Dr Nicole as outpatient. I have seen and examined this patient today. Complain minimal bilateral toe numbness. Significantly improved from previously. Vitals are stable. We will discharge patient home and continue follow-up with orthopedic as outpatient. Continue PTOT at home. Discharge discussed with: patient - Time Spent with Patient Total time spent providing and/or coordinating discharge services: - Discharge Medications Prescriptions: OxyCODONE Immed Rel [Roxicodone 5 MG] 5 mg PO Q6HR PRN 7 Days #28 tablet PRN Reason: Severe Pain Docusate Sodium [Colace] 100 mg PO BID 5 Days #10 capsule Home Medications: Trazodone HCl 100 mg PO HS PRN 03/08/18 [History] Lidocaine Patch [Lidoderm 5% patch] 1 each TP DAILY #10 adh..patch 07/14/18 [Rx] Methocarbamol [Robaxin] 500 mg PO Q8HR #15 tablet 07/14/18 [Rx] Amitriptyline [Elavil] 50 mg PO DAILY 07/15/18 [History] Bupropion HCl [Wellbutrin Xl] 300 mg PO DAILY 07/15/18 [History] Diclofenac Sodium [Voltaren] 50 mg PO BID 07/15/18 [History] Gabapentin [Neurontin] 300 mg PO TID 07/15/18 [History] HYDROcodone/Acet 5/325 mg [[place] 5-325 mg] 1 tab PO Q4-6H PRN 07/15/18 [History] Lidocaine HCl [Aspercreme] 1 appl TP 5XD 07/15/18 [History] Lisinopril [Zestril] 5 mg PO DAILY 07/15/18 [History] Mirabegron [Myrbetriq] 25 mg PO DAILY 07/15/18 [History] Multivit with Calcium,Iron,Min [One Daily Women's] 1 tab PO DAILY 07/15/18 [History] Omeprazole [PriLOSEC] 40 mg PO DAILY 07/15/18 [History] Oxybutynin [Ditropan] 5 mg PO DAILY 07/15/18 [History] hydrOXYzine HCl [Hydroxyzine HCl] 12.5 - 25 mg PO Q4-6H PRN 07/15/18 [History] Docusate Sodium [Colace] 100 mg PO BID 5 Days #10 capsule 07/21/18 [Rx] OxyCODONE Immed Rel [Roxicodone 5 MG] 5 mg PO Q6HR PRN 7 Days #28 tablet 07/21/18 [Rx] Allergies/Adverse Reactions: Allergy/AdvReac Type Severity Reaction Status Date / Time codeine Allergy See Verified 07/15/18 22:56 Comments Iodinated Contrast- Oral and Allergy See Verified 07/15/18 22:56 IV Dye Comments [Iodinated Contrast Media - IV Dye] Date of admission: 07/15/18 22:38 Primary care physician: Farzaneh Lorenzo MD Consults: 07/16/18 19:40 Consult to Physical Therapy [CONS] Routine Comment: Evaluate, develop and implement POC Reason for Consult: Postoperative rehabilitation Does patient have active BEDREST order?: No Is patient medically & hemodynamically stable?: Yes Patient assessed for mobility or mobilized this visit?: No Consult to Spine Navigator [CONS] [CONS] Routine Discharging clinician: Nazia Mcgee Anticipated date of discharge: 07/21/18 - Constitutional Vitals: Temp Pulse Resp BP Pulse Ox 98.4 F 87 16 123/67 93 07/21/18 11:07 07/21/18 11:07 07/21/18 11:07 07/21/18 11:07 07/21/18 11:07 Exam: Exam: Gen.: Vitals noted. No acute distress. AAOx3, resting comfortably in bed. HEENT: PERRL/EOMI, oropharynx clear, Normocephalic, atraumatic, MMM Cardiac: RRR, no murmur, +S1/S2, No BLE edema Pulmonary: CTA bilaterally, no wheezes, rales or rhonchi, equal chest expansion, unlabored breathing Abdomen: soft, nontender, BS noted, no guarding, no palpable HSM Skin: warm and dry, no visible lesions. MSK: Bilateral lower extremity muscle strength 5/5 on right, 4/5 on left on proximal muscle groups. Limited due to pain. ROM intact, no joint swelling noted, gait no assessed while in bed. Non tender calf or clubbing Neuro: A&Ox3, moves all extremities, sensation intact. Positive babinski on left. Psych: Appropriate mood and behavior, AOx3 - Patient Status Disposition: Home, Self-Care Condition: Fair Functional capacity at discharge: uses cane/walker Overall status at discharge: patient is progressing back to baseline - Discharge Instructions Follow Up With: Farzaneh Lorenzo MD [Primary Care Provider] - Rajinder Vo Jr, MD [Partnered Physician] - - Diet and Activity Activity: as per physical therapy Diet: advance to your usual diet - VTE Documentation of Mechanical Device: Graduated compression elastic hosiery
--- NOTE | 2018-07-21 12:51 | Physician Discharge Referral ---
Home Health/Hosp Referral Info Transfer to: Home Health Provider in Charge Post Discharge: PCP - Diagnosis (1) Hypertension Status: Chronic (2) Cauda equina syndrome Status: Acute (3) GERD (gastroesophageal reflux disease) Status: Chronic (4) Spondylolisthesis at L4-L5 level Status: Chronic (5) Lumbar stenosis Status: Chronic - Respiratory Orders Smoking Cessation: Smoking cessation has been advised. For more information, call the [place] Tobacco Quit Line at 3-863-WYZS-NOW. - Services Needed Following services are medically necessary services: Nursing, Home Health Aide, Physical Therapy, Occupational Therapy - Transfer Medications Prescriptions: OxyCODONE Immed Rel [Roxicodone 5 MG] 5 mg PO Q6HR PRN 7 Days #28 tablet PRN Reason: Severe Pain Docusate Sodium [Colace] 100 mg PO BID 5 Days #10 capsule Home Medications: Trazodone HCl 100 mg PO HS PRN 03/08/18 [History] Lidocaine Patch [Lidoderm 5% patch] 1 each TP DAILY #10 adh..patch 07/14/18 [Rx] Methocarbamol [Robaxin] 500 mg PO Q8HR #15 tablet 07/14/18 [Rx] Amitriptyline [Elavil] 50 mg PO DAILY 07/15/18 [History] Bupropion HCl [Wellbutrin Xl] 300 mg PO DAILY 07/15/18 [History] Diclofenac Sodium [Voltaren] 50 mg PO BID 07/15/18 [History] Gabapentin [Neurontin] 300 mg PO TID 07/15/18 [History] HYDROcodone/Acet 5/325 mg [[place] 5-325 mg] 1 tab PO Q4-6H PRN 07/15/18 [History] Lidocaine HCl [Aspercreme] 1 appl TP 5XD 07/15/18 [History] Lisinopril [Zestril] 5 mg PO DAILY 07/15/18 [History] Mirabegron [Myrbetriq] 25 mg PO DAILY 07/15/18 [History] Multivit with Calcium,Iron,Min [One Daily Women's] 1 tab PO DAILY 07/15/18 [History] Omeprazole [PriLOSEC] 40 mg PO DAILY 07/15/18 [History] Oxybutynin [Ditropan] 5 mg PO DAILY 07/15/18 [History] hydrOXYzine HCl [Hydroxyzine HCl] 12.5 - 25 mg PO Q4-6H PRN 07/15/18 [History] Docusate Sodium [Colace] 100 mg PO BID 5 Days #10 capsule 07/21/18 [Rx] OxyCODONE Immed Rel [Roxicodone 5 MG] 5 mg PO Q6HR PRN 7 Days #28 tablet 07/21/18 [Rx] Allergies/Adverse Reactions: Allergy/AdvReac Type Severity Reaction Status Date / Time codeine Allergy See Verified 07/15/18 22:56 Comments Iodinated Contrast- Oral and Allergy See Verified 07/15/18 22:56 IV Dye Comments [Iodinated Contrast Media - IV Dye] Certification: Further, I certify that my clinical findings support that this patient is homebound (i.e. absences from home require considerable and taxing effort and are for medical reasons or [employer] services or infrequently or short duration when for other reasons) because: Homebound Reason: Patient requires assistance of a person or device to safely leave home Attestation: My signature below is to certify that this patient is under my care and that I, or nurse practitioner, or a physician's administrative support assistant working with me, has a [id number] encounter with this patient.
--- NOTE | 2018-07-21 16:33 | Electrocardiograph Report ---
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
== END 2018-07-21 15:55 | disposition home or self-care (01) | DRG 304 ==
LOC: EMEROOARM 17:25 → ICNU 22:38 → 3NENU 07-16 14:27
PROVIDERS: ADMIT Family Medicine; ATTEND Family Medicine